=== PATIENT | male | born 1995 | race Caucasian/White ===

== ENCOUNTER → 2019-12-05 | Outpatient (CLI) | payer OTHER ==
--- NOTE | 2019-12-05 15:03 | XR ---
EXAMINATION TYPE: XR forearm RT DATE OF EXAM: 12/05/2019 COMPARISON: NONE HISTORY: Pain Two views of the forearm demonstrate that the osseous structures appear to be intact and the joint sp aces appear to be preserved. There is no acute fracture or dislocation. IMPRESSION: 1. No acute fracture or dislocation
== END | disposition home or self-care (01) ==
LOC: RADXRMAIN 14:39
PROVIDERS: ATTEND Emergency Medicine
DX: S56.811A Strain of other muscles, fascia and tendons at forearm level, right arm, initial encounter (principal)